=== PATIENT | male | born 1955 | race Caucasian/White ===

== ENCOUNTER 2017-06-19 17:14 | Emergency (ER) | payer BC ==
[2017-06-19 17:38] VITALS: BP 138/89
--- NOTE | 2017-06-19 18:21 | UC ---
Throat Pain/Nasal Samuel HPI - HPI Summary HPI Summary: Patient presents with a past medical history of HTN. He presents today with complaints of sore throat, and headache x 1-2 days. He states he is able to eat , drink and handle his own secretions. He denies any tactile, or recorded fever , chills, chest pain, abdominal pain, nausea, vomiting, diarrhea, rashes or joint pain. - History of Current Complaint Chief Complaint: UCGeneralIllness Stated Complaint: SORE THROAT, AND HEADACHE Time Seen by Provider: 06/19/17 18:03 Hx Obtained From: Patient Onset/Duration: Gradual Onset, Lasting Days Cough: Nonproductive Associated Signs & Symptoms: Positive: Negative - Epiglottits Risk Factors Epiglottis Risk Factors: Negative - Allergies/Home Medications Home Medications: Home Medications Atenolol [Tenormin 25 MG] 25 mg PO DAILY 06/19/17 [History Confirmed 06/19/17] Simvastatin [Zocor 40 MG (NF)] 06/19/17 [History] PMH/Surg Hx/FS Hx/Imm Hx Previously Healthy: Yes Cardiovascular History: Hypertension - Surgical History Surgery Procedure, Year, and Place: knee surgery- February 2016 - Family History Known Family History: Positive: Cardiac Disease, Hypertension - Social History Occupation: Employed Full-time Lives: With Family Alcohol Use: None Substance Use Type: None Smoking Status (MU): Never Smoked Tobacco Review of Systems Constitutional: Negative Skin: Negative Eyes: Negative ENT: Sore Throat Respiratory: Negative Cardiovascular: Negative Gastrointestinal: Negative Genitourinary: Negative Motor: Negative Neurovascular: Negative Musculoskeletal: Negative Neurological: Headache Psychological: Negative Is Patient Immunocompromised?: No All Other Systems Reviewed And Are Negative: Yes Physical Exam Triage Information Reviewed: Yes Appearance: Well-Appearing Vital Signs: Initial Vital Signs Temp 98.7 F 06/19/17 17:32 Pulse 89 06/19/17 17:32 Resp 18 06/19/17 17:32 BP 138/89 06/19/17 17:32 Pulse Ox 97 06/19/17 17:32 Vital Signs Reviewed: Yes Eye Exam: Normal ENT Exam: Normal ENT: Positive: Pharyngeal erythema, Other - white plagues noted on tongue, soft and hard palpate and pharynx. Neck exam: Normal Neck: Positive: 1 Respiratory Exam: Normal Cardiovascular Exam: Normal Psychological Exam: Normal Skin Exam: Normal Throat Pain/Nasal Course/Dx - Course Course Of Treatment: Patient presents with complaints of headache and sore throat. Rapid strep was negative. Clinical findings are consisitent with oral candidiasis. He was RX; nystatin swish and swallow, and diflucan 100 mg now and repeat in one week. He had a nontoxic appearance and was discharged in stable condition. - Differential Dx/Diagnosis Differential Diagnosis/HQI/PQRI: Other - oral candidiasis Provider Diagnoses: oral candidiasis. Discharge - Discharge Plan Condition: Stable Disposition: HOME Prescriptions: Fluconazole 100 MG TAB* [Diflucan 100 MG TAB*] 100 mg PO DAILY #2 tab Nystatin SUSPENSION* 500,000 units .SEE ORDER QID #100 ml Patient Education Materials: Oral Candidiasis (ED) Referrals: No Primary Care Phys,NOPCP [Primary Care Provider] - Additional Instructions: You will need to follow up with your PCP once you get home.
== END 2017-06-19 18:25 | disposition home or self-care (01) ==
LOC: UCEAST 17:14
DX: B37.0 Candidal stomatitis (principal); I10 Essential (primary) hypertension
CPT/HCPCS: 87651; 99202; G0463